=== PATIENT | female | born 1975 | race Caucasian/White ===

== ENCOUNTER 2023-07-08 23:46 | Emergency (ER) | payer MEDICAID, SELFPAY ==
[2023-07-08 23:48] VITALS: BP 167/115; PULSE 114; RESP 18; TEMP 36.7; O2SAT 100; BMI 28.3
[2023-07-09] MEDS: Morphine 4 MG/ML Syringe IV (00:31)
[2023-07-09] MEDS: Ondansetron 4 MG/2 ML Vial IV (00:31)
[2023-07-09 00:44] LABS: Bacteria 0 SEEN /hpf (None Seen); Mucous, Urine 0 SEEN /hpf (<or=2+); Red Blood Cells-Urine 0 SEEN /hpf (0-5); Squamous Epithelial Cells - UA 0 SEEN /hpf (5-10); White Blood Cells 0 SEEN /hpf (0-5)
[2023-07-09 00:52] LABS: Color, Urine Yellow (Yellow); Glucose, Dipstick 1000 mg/dl (Normal); Ketone-Dipstick 5 mg/dl (Negative); Leukocyte Esterase-Dipstick 25 /ul (Negative); Nitrite-Dipstick Negative (Negative); Occult Blood-Urine 10 /ul (Negative); Protein-Dipstick 30 mg/dl (Negative); Specific Gravity, Urine 1.015 (1.002-1.030); Urine Bilirubin Dipstick Negative (Negative); Urine Clarity Clear (Clear); Urine Urobilinogen Normal (Normal)
[2023-07-09 01:20] LABS: Anion Gap 8 (5-15); BUN 9 mg/dL (7-18); BUN/Creat Ratio 13.6 RATIO (10-20); Calcium,Total 8.8 mg/dL (8.5-10.1); Chloride 100 mmol/L (98-107); Creatinine, Serum 0.66 mg/dL (0.55-1.02); EST Glomerular Filtration Rate 101 mL/min (>60); Est Glom Filt Rate - Afr Amer 123 mL/min (>60); Estimated Creatinine Clearance 90.99 ml/min; Glucose 265 mg/dL (74-106); Potassium 3.7 mmol/L (3.5-5.1); Sodium Level 134 mmol/L (136-145)
--- NOTE | 2023-07-09 01:20 | EX.ED.DYSGE1 ---
HPI History of Present Illness Chief Complaint: Abd Pain Detail of Chief Complaint: Pain that started 4 days ago right flank and right lower quadrant Informant: patient Onset/Context/Timing Onset: Days Context: Sudden Onset Timing: Continuous and Waxes and wanes Quality: Initially pain now crampy Location: Initially right flank now right abdomen Current Severity: Mild Maximum Severity: Moderate Worsened by: There is musculoskeletal component Relieved by: Nothing Associated Symptoms Associated Symptoms: Nausea Narrative Narrative: Patient is a 47-year-old woman with history of renal and ureterolithiasis who presents with right flank pain that radiates anteriorly now the right side. She denies dysuria, frequency, urgency or hematuria. She is status post hysterectomy. She denies fever, chills night sweats. She denies trauma of any type. She denies intolerance to greasy or fried foods. She denies pain in the right upper quadrant or epigastrium. She has not noted a rash. Patient states this may be slightly similar to when she had a obstructing ureteral stone. She does have a history of type 2 diabetes requiring insulin. She also has history of depression and anxiety. Prior similar symptoms: Yes (History of ureterolithiasis) Recent Illness/Hospitalization: No [facility] Medical History (Reviewed 07/09/23 @ 01:[address] Charles Gomez MD) Anxiety Asthma COPD (chronic obstructive pulmonary disease) Depression HTN (hypertension) Hypothyroid Idiopathic anaphylaxis Kidney stones Type 2 diabetes mellitus Home Medications albuterol sulfate 90 mcg/actuation aerosol inhaler (ProAir HFA) 2 inh inhalation Q4H PRN shortness of breath or wheezing 07/08/23 [History Last Taken Unknown] fluticasone 250 mcg-salmeterol 50 mcg/dose blistr powdr for inhalation (Advair Diskus) 1 inh inhalation BID 07/08/23 [History Last Taken Unknown] insulin aspart U-100 100 unit/mL (3 mL) subcutaneous pen (Novolog FlexPen U-100 Insulin aspart) See Protocol subcut DAILY 07/08/23 [History Last Taken Unknown] lorazepam 0.5 mg tablet (Ativan) 0.5 mg PO Q8H PRN anxiety 07/08/23 [History Last Taken Unknown] pioglitazone 45 mg tablet (Actos) 45 mg PO DAILY 07/08/23 [History Last Taken Unknown] trazodone 150 mg tablet 150 mg PO QHS 07/08/23 [History Last Taken Unknown] hydrocodone-acetaminophen 5-325mg 5mg-325mg 1 tab PO Q6H PRN PRN Pain 2 days #6 TABLETS 07/09/23 [Rx Last Taken Unknown] Allergy/AdvReac Type Severity Reaction Status Date / Time aspirin Allergy Hives Verified 07/08/23 23:48 diphenhydramine Allergy Hives Verified 07/08/23 23:48 [From Benadryl] latex Allergy Hives Verified 07/08/23 23:48 Sulfa (Sulfonamide Allergy Hives Verified 07/08/23 23:48 Antibiotics) Surgical History (Reviewed 07/09/23 @ 01:[address] Charles Gomez MD) H/O lithotripsy H/O total hysterectomy History of urethral stent Social History (Updated 07/09/23 @ 01:[address] Charles Gomez MD) household members: spouse Smoking Status: Current every day smoker tobacco type: cigarettes substance use type: does not use ROS ROS ED Constitutional Constitutional ED: Denies chills, fever(s), subjective, sweats or weight loss Eyes Eyes: Denies blurry vision, change in vision or diplopia ENT ENT ED: Denies ear pain, rhinorrhea or sore throat Cardiovascular Cardiovascular: Denies chest pain, orthopnea, palpitations, paroxysmal nocturnal dyspnea or racing heartbeat Respiratory/Chest Respiratory/Chest: Denies cough, dyspnea, dyspnea on exertion, orthopnea or paroxysmal nocturnal dyspnea Gastrointestinal Gastrointestinal: Reports nausea; Denies abdominal pain, diarrhea, melena or vomiting Genitourinary Genitourinary ED: Denies dysuria, hematuria or urinary frequency Musculoskeletal Musculoskeletal: Reports back pain; Denies arthralgias, myalgias or neck pain Integumentary Denies rash Neurologic Neurologic: Denies paresthesias or weakness Psychiatric Psychiatric: Reports anxiety and depression Hematologic/Lymphatic Hematologic/Lymphatic: Reports systems reviewed and no addt'l complaints, except as documented EXAM Physical Exam Const Vital Signs: 07/08/23 23:48 Temperature 98.1 F Temperature Source Temporal Pulse Rate 114 H Respiratory Rate 18 Blood Pressure 167/115 H Blood Pressure Mean 132 Pulse Ox 100 Positive well nourished, well developed and obese General Appearance ED: well developed and NAD; Negative for cyanotic, diaphoretic or pallor Nutritional Appearance: obese HEENT Reports moist mucous membranes HEENT Narrative: Head is atraumatic and normocephalic. Ears are normal. Nares are patent. Posterior pharynx is unremarkable. Eyes PERRL and EOMs intact bilaterally General Eye ED: Negative for pale conjunctiva or scleral icterus Neck no lymphadenopathy, supple and no JVD Chest Wall inspection of chest normal and palpation of chest normal Resp normal respiratory effort and clear to auscultation bilaterally Cardio regular rate, regular rhythm, S1 normal heart sound, S2 normal heart sound and no murmurs GI normal to inspection, nondistended, normoactive bowel sounds, non-tender, non-distended and no masses; Negative for hepatosplenomegaly Back/Spine no CVA tenderness Cervical Spine: Negative for cervical spine tenderness Thoracic Spine / Upper Back: paraspinal muscle tenderness; Negative for thoracic spinal tenderness Lumbar Spine / Lower Back: Negative for lumbar spinal tenderness Extremity normal to inspection Extremity Narrative: Distal pulses are palpable. General Extremety ED: Negative for edema or tenderness General Extremity: Negative for edema Neuro oriented x3, CN's II-XII intact bilaterally and no sensory deficits noted Sensorium / Orientation: alert Motor Exam: strength 5/5 throughout Psych Mood & Affect: depressed Skin no rashes or lesions noted, no wounds and skin turgor normal General Skin Exam: Negative for jaundice or pallor MDM MDM MDM Narrative Medical decision making narrative: Diagnosis would include muscular pain associated with reproducible component and pain with twisting. Ureterolithiasis, pain of unknown etiology, doubt pyelonephritis. Doubt appendicitis since she does not have any abdominal pain. Patient was medicated with IV morphine. Patient informed nurse that she has increased pain. Since there is no evidence of urologic pathology based on history and physical and she is complaining of cramping pain she was treated with Bentyl. 1 would expect elevated white count if this represented appendicitis that started 4 days ago and would expect abdominal pain. With a negative urine there is no evidence of infection and doubt this is due to obstructing stone because patient does not appear uncomfortable. History & Record Review Discussion w/independent historian: Patient and Significant other Additional record(s) reviewed:: No prior records Lab Data Attestation: I reviewed the patient's lab results. Lab results narrative: BC is normal. Electrolyte panel is remarkable glucose was 265 with normal CO2 and anion gap. Analysis macro is remarkable for protein, glucose and ketones and occult blood. There is no nitrites. Microscopic is negative. 0 RBCs, 0 WBCs, 0 epithelial cells and 0 bacteria. Labs: Laboratory Results - last 24 hr 07/09/23 07/09/23 00:35 00:38 WBC 9.6 RBC 5.04 Hgb 15.3 H Hct 44.8 MCV 88.9 MCH 30.4 MCHC 34.2 RDW Std Deviation 41.6 RDW Coeff of Manpreet 12.8 Plt Count 482 H MPV 8.8 Immature Gran % (Auto) 0.400 Neut % (Auto) 53.6 Lymph % (Auto) 35.9 [place] % (Auto) 6.6 Eos % (Auto) 2.6 Baso % (Auto) 0.9 Absolute Neuts (auto) 5.1 Absolute Lymphs (auto) 3.44 Nucleated RBC % 0 Sodium 134 L Potassium 3.7 Chloride 100 Carbon Dioxide 26.0 Anion Gap 8 BUN 9 Creatinine 0.66 Estim Creat Clear Calc 90.99 Est GFR (MDRD) Af Amer 123 Est GFR (MDRD) Non-Af 101 BUN/Creatinine Ratio 13.6 Glucose 265 H Calcium 8.8 Urine Color Yellow Urine Clarity Clear Urine pH 6.0 Ur Specific [place] 1.015 Urine Protein 30 H Urine Glucose (UA) 1000 H Urine Ketones 5 H Urine Occult Blood 10 H Urine Nitrite Negative Urine Bilirubin Negative Urine Urobilinogen Normal Ur Leukocyte Esterase 25 H Urine RBC 0 SEEN Urine WBC 0 SEEN Ur Squamous Epith Cells 0 SEEN Urine Bacteria 0 SEEN Urine Mucus 0 SEEN Treatment and Re-Evaluation :: It was medicated Bentyl since her laboratory studies were negative. She was reexamined. She appears in no significant discomfort. Her abdominal exam is benign. She was told the cause of her pain is unknown. Furthermore she was told that 50% of patients who come into the emergency room with abdominal pain the answer is unknown. Discharge Plan Triage Chief Complaint: Abd Pain ED Provider: Charles Gomez Dx/Rx/DC Orders Clinical Impression: Right-sided abdominal pain of unknown cause, History of anxiety, Type 2 diabetes mellitus with hyperglycemia, with long-term current use of insulin, History of depression Instructions: ED Abdominal Pain Unkn Cause Fem Prescriptions: New hydrocodone-acetaminophen [hydrocodone-acetaminophen] 5-325 mg tablet 1 tab PO Q6H PRN PRN (Reason: Pain) 2 Days Qty: 6 0RF No Action fluticasone propion-salmeterol [Advair Diskus] 250-50 mcg/dose blister with device 1 inh inhalation BID albuterol sulfate [ProAir HFA] 90 mcg/actuation HFA aerosol inhaler 2 inh inhalation Q4H PRN (Reason: shortness of breath or wheezing) lorazepam [Ativan] 0.5 mg tablet 0.5 mg PO Q8H PRN (Reason: anxiety) pioglitazone [Actos] 45 mg tablet 45 mg PO DAILY insulin aspart U-100 [Novolog FlexPen U-100 Insulin] 100 unit/mL (3 mL) insulin pen See Protocol subcut DAILY Protocol: 6. Sliding Scale Insulin Custom Condition: mg/dl range Dose/Route: Number of Units Protocol Text: Custom Sliding Scale Patient Comments: HAS PAPER AT HOME FOR SCALE trazodone 150 mg tablet 150 mg PO QHS Primary Care Provider: Nakia Garcia Referrals: NOT,DEFINED [Non-Staff] - Doctor,Your [Non-Staff] - 2 Days Disposition Disposition: Home, Self Care
[2023-07-09] MEDS: Dicyclomine 10 MG Capsule 20 MG PO (01:24)
[2023-07-09 01:40] LABS: Absolute Lymphocyte Count 3.44 X10^3/uL (0.83-4.51); Absolute Neutrophil Count 5.1 X10^3/uL (2.0-7.7); Basophil# 0.09 X10^3/uL; Basophil% 0.9 % (0-1); Eosinophil# 0.25 X10^3/uL; Eosinophils% 2.6 % (0-5); Hematocrit 44.8 % (37-47); Hemoglobin 15.3 g/dL (12.0-15.0); Lymphocyte # 3.44 X10^3/ul (0.83-4.51); Lymphocyte % 35.9 % (19-41); Mean Corp Hgb Conc 34.2 g/dL (32-36); Mean Corpuscular Hgb 30.4 pg (27.0-32.0); Mean Corpuscular Volume 88.9 fL (81-99); Mean Platelet Vol. 8.8 fl (6.2-12.0); Monocyte# 0.63 X10^3/uL; Monocyte% 6.6 % (0-10); NRBC Flagged by Analyzer 0 % (0-5); Neutrophil # 5.12 X10^3/uL (2.7-7.7); Neutrophil % 53.6 % (47-70); Platelet Count 482 K/mm3 (150-450); RBC Distribution Width CV 12.8 % (11.6-14.6); RBC Distribution Width SD 41.6 fl (35.1-43.9); Red Blood Count 5.04 M/mm3 (4.2-5.4); White Blood Count 9.6 K/mm3 (4.4-11.0)
[2023-07-09 02:05] VITALS: PULSE 79; RESP 16; O2SAT 98
== END 2023-07-09 02:07 | disposition home or self-care (01) ==
PROVIDERS: Emergency Provider Emergency Medicine; Visit Provider Emergency Medicine
DX: R10.31 Right lower quadrant pain (principal); J44.9 Chronic obstructive pulmonary disease, unspecified; E11.65 Type 2 diabetes mellitus with hyperglycemia; Z79.4 Long term (current) use of insulin; F17.210 Nicotine dependence, cigarettes, uncomplicated; E66.9 Obesity, unspecified; F41.9 Anxiety disorder, unspecified; F32.A Depression, unspecified; Z79.899 Other long term (current) drug therapy
CPT/HCPCS: 80048; 81001; 85025; 96374; 96375; 99284; J7030; A4216; J2405

== ENCOUNTER 2023-07-12 12:47 | Emergency (ER) | payer MEDICAID, SELFPAY ==
[2023-07-12 12:47] VITALS: BP 163/110; PULSE 123; RESP 18; TEMP 36.2; O2SAT 99; BMI 27.6
[2023-07-12 13:43] LABS: Bacteria 0 SEEN /hpf (None Seen); Mucous, Urine 0 SEEN /hpf (<or=2+); Red Blood Cells-Urine 0 SEEN /hpf (0-5)
[2023-07-12 13:56] LABS: Color, Urine Yellow (Yellow); Glucose, Dipstick 1000 mg/dl (Normal); Ketone-Dipstick 5 mg/dl (Negative); Leukocyte Esterase-Dipstick Negative /ul (Negative); Nitrite-Dipstick Negative (Negative); Occult Blood-Urine 10 /ul (Negative); Protein-Dipstick 30 mg/dl (Negative); Specific Gravity, Urine 1.015 (1.002-1.030); Urine Bilirubin Dipstick Negative (Negative); Urine Clarity Clear (Clear); Urine Urobilinogen Normal (Normal)
[2023-07-12 14:10] LABS: Squamous Epithelial Cells - UA 0-5 SEEN /hpf (5-10); White Blood Cells 0-5 SEEN /hpf (0-5)
[2023-07-12] MEDS: 0.9% Normal Saline (1000mL) 1,000 ML 1000 ML IV (14:14)
[2023-07-12] MEDS: Ketorolac 30 MG/ML Syringe IV (14:15)
[2023-07-12] MEDS: Ondansetron 4 MG/2 ML Vial IV (14:15)
--- NOTE | 2023-07-12 14:15 | EDS_ITS ---
HPI History of Present Illness Chief Complaint: Abd Pain Informant: patient Narrative Narrative: 47-year-old diabetic female presenting to the emergency room with abdominal pain nausea vomiting swelling. Patient states she was seen in the emergency room on Monday had negative labs and was discharged home to follow-up with her doctor. She states her doctor cannot see her till next Monday due to the office being closed. Patient reports that this has been going on for weeks and describes a right-sided pain with intermittent swelling. She notes nausea vomiting decreased p.o. intake and weight loss. She states that when she stands there is a more prominent bulge on the right side of her abdomen along the lower rib/chondral region. Patient has had prior kidney stones before. She has had a hysterectomy. [facility] Medical History Anxiety Asthma COPD (chronic obstructive pulmonary disease) Depression HTN (hypertension) Hypothyroid Idiopathic anaphylaxis Kidney stones Type 2 diabetes mellitus Home Medications albuterol sulfate 90 mcg/actuation aerosol inhaler (ProAir HFA) 2 inh inhalation Q4H PRN shortness of breath or wheezing 07/08/23 [History Last Taken Unknown] fluticasone 250 mcg-salmeterol 50 mcg/dose blistr powdr for inhalation (Advair Diskus) 1 inh inhalation BID 07/08/23 [History Last Taken Unknown] insulin aspart U-100 100 unit/mL (3 mL) subcutaneous pen (Novolog FlexPen U-100 Insulin aspart) See Protocol subcut DAILY 07/08/23 [History Last Taken Unknown] lorazepam 0.5 mg tablet (Ativan) 0.5 mg PO Q8H PRN anxiety 07/08/23 [History Last Taken Unknown] pioglitazone 45 mg tablet (Actos) 45 mg PO DAILY 07/08/23 [History Last Taken Unknown] trazodone 150 mg tablet 150 mg PO QHS 07/08/23 [History Last Taken Unknown] hydrocodone-acetaminophen 5-325mg 5mg-325mg 1 tab PO Q6H PRN PRN Pain 2 days #6 TABLETS 07/09/23 [Rx Last Taken Unknown] hydrocodone-acetaminophen 5-325mg 5mg-325mg 1 tab PO Q6H PRN PRN Pain 5 days #20 TABLETS 07/12/23 [Rx Last Taken Unknown] ondansetron 4 mg disintegrating tablet 4 mg PO Q6H PRN PRN Nausea #10 tabs 07/12/23 [Rx Last Taken Unknown] Allergy/AdvReac Type Severity Reaction Status Date / Time aspirin Allergy Hives Verified 07/12/23 12:49 diphenhydramine Allergy Hives Verified 07/12/23 12:49 [From Benadryl] iodine Allergy Rash Verified 07/12/23 14:17 latex Allergy Hives Verified 07/12/23 12:49 Sulfa (Sulfonamide Allergy Hives Verified 07/12/23 12:49 Antibiotics) Surgical History H/O lithotripsy H/O total hysterectomy History of urethral stent Social History household members: spouse Smoking Status: Current every day smoker tobacco type: cigarettes substance use type: does not use ROS ROS ED Constitutional Constitutional ED: Reports weight loss; Denies chills or fever(s) Eyes Eyes: Denies change in vision or diplopia ENT ENT ED: Denies ear pain, rhinorrhea or sore throat Cardiovascular Cardiovascular: Denies chest pain, orthopnea, palpitations or racing heartbeat Respiratory/Chest Respiratory/Chest: Denies cough, dyspnea or orthopnea Gastrointestinal Gastrointestinal: Reports abdominal pain, nausea and vomiting; Denies diarrhea Genitourinary Genitourinary ED: Denies dysuria, hematuria or urinary frequency Musculoskeletal Musculoskeletal: Denies arthralgias or myalgias Integumentary Denies abscess or rash Neurologic Neurologic: Denies headache(s) or weakness Psychiatric Psychiatric: Denies anxiety, depression, suicidal ideation or suicidal thoughts Endocrine Endocrinology: Denies polydipsia, polyphagia or polyuria Allergic/Immunologic Allergic/Immunologic ED: Denies mouth swelling, tongue swelling or urticaria EXAM Physical Exam Const Vital Signs: 07/12/23 12:47 07/12/23 15:46 Temperature 97.2 F L Temperature Source Temporal Pulse Rate 123 H 79 Respiratory Rate 18 16 Blood Pressure 163/110 H 139/72 H Blood Pressure Mean 127 94 Pulse Ox 99 97 Oxygen Delivery Method Room Air Room Air Positive well nourished and well developed General Appearance ED: well developed HEENT Reports normocephalic, head/scalp atraumatic and moist mucous membranes Eyes PERRL and EOMs intact bilaterally Neck no lymphadenopathy, supple and no JVD Resp normal respiratory effort and clear to auscultation bilaterally Cardio regular rate, regular rhythm and no murmurs GI Auscultation: normoactive bowel sounds Palpation: soft and tender RUQ; Negative for guarding or rebound tenderness present Narrative: Tenderness in the right upper quadrant lower anterior lateral ribs and right middle quadrant. Back/Spine no CVA tenderness and normal ROM Extremity normal to inspection General Extremety ED: Negative for edema General Extremity: Negative for edema Neuro oriented x3 and CN's II-XII intact bilaterally Sensorium / Orientation: alert Motor Exam: strength 5/5 throughout Psych mental status grossly normal Mood & Affect: Negative for depressed or tearful Skin no rashes or lesions noted and no wounds MDM MDM MDM Narrative Medical decision making narrative: White count remains normal 9.1 hemoglobin 16.6 with a platelet count of 494. Liver enzymes and lipase are normal. Glucose of 330. Urinalysis showed no obvious infection or hematuria. CT of the abdomen pelvis demonstrates some possible sludge with gallstones. I do not see any inflammation around the colon. Patient will receive some pain and nausea medication and we are going to perform an ultrasound. As the patient has had symptoms for a couple weeks her white count remains normal no elevation of liver enzymes and her symptoms are bit atypical and not convinced that she would need an emergent cholecystectomy. If the gallbladder ultrasound does not show anything emergent I will write for pain and nausea medication and we will have her follow-up with her primary care doctor on Monday. She may need further studies such as a HIDA scan colonoscopy or general surgery evaluation. Patient is comfortable with this plan I will speak with the oncoming physician Lab Data Attestation: I reviewed the patient's lab results. Labs: Laboratory Results - last 24 hr 07/12/23 07/12/23 13:02 14:20 WBC 9.1 RBC 5.47 H Hgb 16.6 H Hct 48.2 H MCV 88.1 MCH 30.3 MCHC 34.4 RDW Std Deviation 41.1 RDW Coeff of Manpreet 12.7 Plt Count 494 H MPV 8.4 Immature Gran % (Auto) 0.300 Neut % (Auto) 54.8 Lymph % (Auto) 36.4 [place] % (Auto) 6.0 Eos % (Auto) 1.7 Baso % (Auto) 0.8 Absolute Neuts (auto) 5.0 Absolute Lymphs (auto) 3.30 Nucleated RBC % 0 Sodium 128 L Potassium 4.2 Chloride 98 Carbon Dioxide 23.0 Anion Gap 7 BUN 8 Creatinine 0.73 Estim Creat Clear Calc 82.27 Est GFR (MDRD) Af Amer 109 Est GFR (MDRD) Non-Af 90 BUN/Creatinine Ratio 10.9 Glucose 330 H Calcium 9.2 Total Bilirubin 0.40 Direct Bilirubin 0.11 AST 8 L ALT 13 Alkaline Phosphatase 93 Total Protein 7.5 Albumin 3.8 Globulin 3.7 Lipase 32 Urine Color Yellow Urine Clarity Clear Urine pH 6.0 Ur Specific [place] 1.015 Urine Protein 30 H Urine Glucose (UA) 1000 H Urine Ketones 5 H Urine Occult Blood 10 H Urine Nitrite Negative Urine Bilirubin Negative Urine Urobilinogen Normal Ur Leukocyte Esterase Negative Urine RBC 0 SEEN Urine WBC 0-5 SEEN Ur Squamous Epith Cells 0-5 SEEN Urine Bacteria 0 SEEN Urine Mucus 0 SEEN Radiography Diagnostic Testing: Clinical Impression(s) from Imaging Studies Abdomen/Pelvis CT 07/12/23 14:39 IMPRESSION: Nonobstructive right intrarenal calculus. Questionable small gallstones or sludge along the dependent portion of the gallbladder lumen. Electronically Signed: Fran Aguilar MD at 15:05 EST , Discharge Plan Triage Chief Complaint: Abd Pain ED Provider: Mohan Bhardwaj Dx/Rx/DC Orders Clinical Impression: Right-sided abdominal pain of unknown cause, Type 2 diabetes mellitus with hyperglycemia, with long-term current use of insulin Instructions: Abdominal Pain Prescriptions: New hydrocodone-acetaminophen [hydrocodone-acetaminophen] 5-325 mg tablet 1 tab PO Q6H PRN PRN (Reason: Pain) 5 Days Qty: 20 0RF ondansetron [ondansetron] 4 mg tablet,disintegrating 4 mg PO Q6H PRN PRN (Reason: Nausea) Qty: 10 0RF No Action fluticasone propion-salmeterol [Advair Diskus] 250-50 mcg/dose blister with device 1 inh inhalation BID albuterol sulfate [ProAir HFA] 90 mcg/actuation HFA aerosol inhaler 2 inh inhalation Q4H PRN (Reason: shortness of breath or wheezing) lorazepam [Ativan] 0.5 mg tablet 0.5 mg PO Q8H PRN (Reason: anxiety) pioglitazone [Actos] 45 mg tablet 45 mg PO DAILY insulin aspart U-100 [Novolog FlexPen U-100 Insulin] 100 unit/mL (3 mL) insulin pen See Protocol subcut DAILY Protocol: 6. Sliding Scale Insulin Custom Condition: mg/dl range Dose/Route: Number of Units Protocol Text: Custom Sliding Scale Patient Comments: HAS PAPER AT HOME FOR SCALE trazodone 150 mg tablet 150 mg PO QHS hydrocodone-acetaminophen [hydrocodone-acetaminophen] 5-325 mg tablet 1 tab PO Q6H PRN PRN (Reason: Pain) 2 Days Qty: 6 0RF Primary Care Provider: Nakia Garcia Referrals: Nakia Garcia MD [Primary Care Provider] - [facility] appointment Disposition Disposition: Home, Self Care
[2023-07-12 14:24] LABS: Basophil# 0.07 X10^3/uL; Basophil% 0.8 % (0-1); Eosinophil# 0.15 X10^3/uL; Eosinophils% 1.7 % (0-5); Hematocrit 48.2 % (37-47); Hemoglobin 16.6 g/dL (12.0-15.0); Lymphocyte % 36.4 % (19-41); Mean Corp Hgb Conc 34.4 g/dL (32-36); Mean Corpuscular Hgb 30.3 pg (27.0-32.0); Mean Corpuscular Volume 88.1 fL (81-99); Mean Platelet Vol. 8.4 fl (6.2-12.0); Monocyte# 0.54 X10^3/uL; NRBC Flagged by Analyzer 0 % (0-5); Neutrophil # 4.97 X10^3/uL (2.7-7.7); Neutrophil % 54.8 % (47-70); Platelet Count 494 K/mm3 (150-450); RBC Distribution Width CV 12.7 % (11.6-14.6); RBC Distribution Width SD 41.1 fl (35.1-43.9); Red Blood Count 5.47 M/mm3 (4.2-5.4); White Blood Count 9.1 K/mm3 (4.4-11.0)
--- NOTE | 2023-07-12 14:39 | CT_ITS ---
STUDY: CT ABDOMEN AND PELVIS WITHOUT CONTRAST REASON FOR EXAM: Female, 47 years old. Right flank pain. Nausea and vomiting. RADIATION DOSAGE (If Supplied By Facility): CTDIvol = ( 10.83 ) mGy, DLP = ( 551.31 ) mGycm TECHNIQUE: Transaxial images were obtained from the dome of the diaphragm to the symphysis pubis without oral contrast, and without intravenous contrast. Sagittal and coronal images were reconstructed. Individualized dose optimization techniques were used for this CT. COMPARISON: None. FINDINGS: The visualized lung bases are unremarkable. The visualized portions of the heart are within normal limits. Hepatomegaly. Crests most large or small gallstones along the dependent portion of the gallbladder. Normal spleen. Normal pancreas. Normal bilateral adrenal glands. There is a 2.5 mm nonobstructive calculus in the upper pole calyx of the right kidney. Normal left kidney. Normal visualized stomach. Normal small intestine. There are scattered colonic diverticula consistent with diverticulosis. The appendix is visualized and appears normal. Normal abdominal aorta. Normal inferior vena cava. Normal retroperitoneum. Normal urinary bladder. There is absence of the uterus consistent with a prior hysterectomy. Normal abdominal wall. There are mild degenerative changes of the visualized lumbar spine. CT/Abdomen/Pelvis without Cont IMPRESSION: Nonobstructive right intrarenal calculus. Questionable small gallstones or sludge along the dependent portion of the gallbladder lumen. Electronically Signed: Fran Aguilar MD at 15:05 EST ,
[2023-07-12 14:42] LABS: AST(SGOT) 8 U/L (15-37); Alanine Aminotransfer ALT/SGPT 13 U/L (13-56); Albumin, Serum 3.8 g/dL (3.2-5.0); Alkaline Phosphatase 93 U/L (45-117); Anion Gap 7 (5-15); BUN 8 mg/dL (7-18); BUN/Creat Ratio 10.9 RATIO (10-20); Bilirubin, Direct 0.11 mg/dL (0.00-0.30); Calcium,Total 9.2 mg/dL (8.5-10.1); Chloride 98 mmol/L (98-107); Creatinine, Serum 0.73 mg/dL (0.55-1.02); EST Glomerular Filtration Rate 90 mL/min (>60); Est Glom Filt Rate - Afr Amer 109 mL/min (>60); Estimated Creatinine Clearance 82.27 ml/min; Globulin 3.7 g/dL (2.2-4.2); Glucose 330 mg/dL (74-106); Lipase 32 U/L (13-75); Potassium 4.2 mmol/L (3.5-5.1); Protein, Total 7.5 g/dL (6.4-8.2); Sodium Level 128 mmol/L (136-145)
[2023-07-12 15:46] VITALS: BP 139/72; PULSE 79; RESP 16; O2SAT 97
--- NOTE | 2023-07-12 16:08 | US_ITS ---
INDICATION: pain EXAMINATION: Ultrasound US Abdomen Limited (quadrant) TECHNIQUE: Jefferson scale and color doppler imaging was performed of the right upper quadrant. COMPARISON: FINDINGS: LIVER: There is coarse echotexture measuring 18.4 cm. No focal hepatic lesion. There is no free fluid. GALLBLADDER AND BILIARY TREE: No shadowing gallstone, pericholecystic fluid or gallbladder wall thickening is demonstrated. The proximal common bile duct measures 5 mm, which is within normal limits for the patient''s age. Songraphic Reddy''s sign: Negative. PANCREAS: No focal abnormality is demonstrated in the pancreas. No pancreatic ductal dilatation. RIGHT KIDNEY: 12.7 x 5.1 x 5.1 cm. The cortex is 14 mm. No hydronephrosis. No shadowing calculi. US/Gallbladder IMPRESSION: Coarse hepatic echotexture with borderline size of the liver. Electronically Signed: Saeid Kirby DO at 17:00 EST ,
[2023-07-12 17:32] VITALS: BP 124/79; PULSE 62; RESP 15; O2SAT 98
== END 2023-07-12 17:34 | disposition home or self-care (01) ==
PROVIDERS: Emergency Provider Emergency Medicine; Visit Provider Emergency Medicine
DX: R10.9 Unspecified abdominal pain (principal); E11.65 Type 2 diabetes mellitus with hyperglycemia; Z79.4 Long term (current) use of insulin; F17.210 Nicotine dependence, cigarettes, uncomplicated
CPT/HCPCS: 74176; 76705; 80048; 80076; 81001; 83690; 85025; 96361; 96374; 96375; 99283; J7030; A4216; J2405

== ENCOUNTER 2023-08-28 16:10 | Emergency (ER) | payer MEDICAID, SELFPAY ==
[2023-08-28 16:16] VITALS: BP 158/99; PULSE 98; RESP 16; TEMP 36.1; O2SAT 96
[2023-08-28 16:22] VITALS: BP 158/99; PULSE 98; RESP 18; TEMP 36.1; O2SAT 96
--- NOTE | 2023-08-28 16:50 | ED.VIS.GI ---
HPI HPI - GI History of Present Illness Chief Complaint: Abd Pain Detail of Chief Complaint: Chronic abdominal pain for 3+ months. Nausea, vomiting diarrhea today. Informant: patient and spouse/S.O. Abdominal Pain/Flank Pain Onset: Month(s) Context: Gradual Onset Timing: Continuous Quality: Cramping Location: Diffuse Current Severity: Mild Maximum Severity: Moderate Worsened by: Nothing Relieved by: Nothing Nausea/Vomiting/Emesis GI Symptom: Positive for Nausea and Vomiting Onset: Today Diarrhea/Melena/Hematochezia GI Symptom: Positive for Diarrhea; Negative for Melena or Hematochezia Onset: Today Stool Quality: Positive for Loose Severity: Mild Associated Symptoms Associated Symptoms: Negative for Dysuria, Frequency, Hematuria or Urgency Narrative Narrative: 47-year-old female extensive past medical history of COPD, diabetes, kidney stones. She has had diffuse abdominal pain for 3+ months. Today has nausea, vomiting and diarrhea. Epigastric pain. Says she just feels weak. She has had decreased oral intake for the last 3 days. This has been a chronic abdominal pain she has had for months. They are working it up. No specific cause. She had ultrasound of her gallbladder which is unremarkable. A pending HIDA scan. She had an upper GI which showed no acute abnormality by endoscopy. She had a CT of her abdomen which was unremarkable. She seen a GI physician who did her upper endoscopy. They have not done a colonoscopy as of yet. Patient states she has had a 90 pound weight loss in the last year of which she is lost 40 to 50 pounds in the last 4+ months. She has had a prior hysterectomy no other abdominal or pelvic surgeries. Prior similar symptoms: Yes Recent Illness/Hospitalization: No PFSH PFSH Medical History Anxiety Asthma COPD (chronic obstructive pulmonary disease) Depression HTN (hypertension) Hypothyroid Idiopathic anaphylaxis Kidney stones Type 2 diabetes mellitus Home Medications albuterol sulfate 90 mcg/actuation aerosol inhaler (ProAir HFA) 2 inh inhalation Q4H PRN shortness of breath or wheezing 07/08/23 [History Last Taken Unknown] fluticasone 250 mcg-salmeterol 50 mcg/dose blistr powdr for inhalation (Advair Diskus) 1 inh inhalation BID 07/08/23 [History Last Taken Unknown] insulin aspart U-100 100 unit/mL (3 mL) subcutaneous pen (Novolog FlexPen U-100 Insulin aspart) See Protocol subcut DAILY 07/08/23 [History Last Taken Unknown] lorazepam 0.5 mg tablet (Ativan) 0.5 mg PO Q8H PRN anxiety 07/08/23 [History Last Taken Unknown] pioglitazone 45 mg tablet (Actos) 45 mg PO DAILY 07/08/23 [History Last Taken Unknown] trazodone 150 mg tablet 150 mg PO QHS 07/08/23 [History Last Taken Unknown] hydrocodone-acetaminophen 5-325mg 5mg-325mg 1 tab PO Q6H PRN PRN Pain 2 days #6 TABLETS 07/09/23 [Rx Last Taken Unknown] hydrocodone-acetaminophen 5-325mg 5mg-325mg 1 tab PO Q6H PRN PRN Pain 5 days #20 TABLETS 07/12/23 [Rx Last Taken Unknown] ondansetron 4 mg disintegrating tablet 4 mg PO Q6H PRN PRN Nausea #10 tabs 07/12/23 [Rx Last Taken Unknown] Allergy/AdvReac Type Severity Reaction Status Date / Time aspirin Allergy Hives Verified 08/28/23 16:12 diphenhydramine Allergy Hives Verified 08/28/23 16:12 [From Benadryl] iodine Allergy Rash Verified 08/28/23 16:12 latex Allergy Hives Verified 08/28/23 16:12 Sulfa (Sulfonamide Allergy Hives Verified 08/28/23 16:12 Antibiotics) Surgical History H/O lithotripsy H/O total hysterectomy History of urethral stent Social History household members: spouse Smoking Status: Current every day smoker tobacco type: cigarettes substance use type: does not use ROS ROS ED Review of Systems ROS Unobtainable: Denies due to encephalopathy Constitutional Constitutional ED: Denies chills or fever(s) ENT ENT ED: Denies ear pain Cardiovascular Cardiovascular: Denies chest pain Respiratory/Chest Respiratory/Chest: Denies cough or dyspnea Gastrointestinal Gastrointestinal: Reports abdominal pain, diarrhea, nausea and vomiting; Denies constipation or melena Genitourinary Genitourinary ED: Denies dysuria or hematuria Musculoskeletal Musculoskeletal: Denies arthralgias or back pain Integumentary Denies abscess Neurologic Neurologic: Denies headache(s) Psychiatric Psychiatric: Reports anxiety and depression Endocrine Endocrinology: Denies polydipsia Hematologic/Lymphatic Hematologic/Lymphatic: Denies easy bleeding or easy bruising Allergic/Immunologic Allergic/Immunologic ED: Denies mouth swelling or tongue swelling EXAM Physical Exam Narrative Exam Narrative: 47-year-old female no acute distress. Vital signs stable afebrile. at bedside. H EENT exam unremarkable. Neck nontender. Lungs clear to auscultation bilaterally. Heart regular rhythm rate in 90s no murmur. Abdomen soft nondistended normal bowel sounds no peritoneal signs. She complains of epigastric pain is not significantly reproducibly tender. Right upper right lower quadrant unremarkable. No hernia or mass. No pulsatile mass. No distention or obstruction. Moving all 4 extremities. Nontender no edema. Neurologically she is awake and alert. Back nontender. Const Vital Signs: 08/28/23 16:16 08/28/23 16:22 Temperature 97.0 F L 97.0 F L Temperature Source Temporal Temporal Pulse Rate 98 98 Respiratory Rate 16 18 Blood Pressure 158/99 H 158/99 H Blood Pressure Mean 118 118 Pulse Ox 96 96 Oxygen Delivery Method Room Air Room Air Positive well nourished and well developed; Negative for obese, cachectic or contractures General Appearance ED: well developed; Negative for cachectic, contractures or pallor Nutritional Appearance: Negative for cachectic or obese HEENT Reports moist mucous membranes normocephalic and atraumatic; Negative for trauma or tenderness Eyes PERRL and EOMs intact bilaterally General Eye ED: Negative for pale conjunctiva or scleral icterus Neck no lymphadenopathy, supple and no JVD General: Negative for tenderness Carotids: Negative for other Lymph Lymphatic: Negative for other Resp normal respiratory effort Effort and Inspection: Negative for respiratory distress Auscultation: Negative for rales, rhonchi or wheezes Cardio regular rate, regular rhythm, S1 normal heart sound, S2 normal heart sound and no murmurs Rate: Negative for bradycardia or tachycardic Rhythm: Negative for abnormal rhythm GI non-tender, non-distended and no masses Inspection: Negative for abdominal distention Auscultation: normoactive bowel sounds Palpation: soft; Negative for tender, guarding, rigid or rebound tenderness present Back/Spine no CVA tenderness General Back: Negative for CVA tenderness Cervical Spine: Negative for cervical spine tenderness Thoracic Spine / Upper Back: Negative for thoracic spinal tenderness Lumbar Spine / Lower Back: Negative for lumbar spinal tenderness Coccyx: Negative for other Extremity full ROM General Extremety ED: Negative for edema or tenderness General Extremity: Negative for edema Neuro CN's II-XII intact bilaterally and moves all extremities Sensorium / Orientation: alert, oriented to person, oriented to place and oriented to time; Negative for orientation impaired, confused or lethargic Motor Exam: strength 5/5 throughout Psych mental status grossly normal and thought process normal Appearance: Negative for other Attitude: No agitated Mood & Affect: Negative for depressed Skin no wounds General Skin Exam: Negative for jaundice or pallor Lesions: no lesions Rashes: no rashes Trauma: Negative for abrasion or other Nails: Negative for discolored MDM MDM MDM Narrative Medical decision making narrative: [id number] female with 3+ month history of daily abdominal pain intermittent nausea, vomiting and diarrhea which she has had today prior negative upper endoscopy, CT abdomen and pelvis and ultrasound. All of which been unremarkable. Labs are pending. Zofran for nausea. And Toradol for pain. Repeat exam patient is doing well at 5:55 PM patient doing well. Abdomen is completely benign. Nontender nondistended. We went over her labs. She is an extensive workup over the last several months. I do think a lot of this is related to her anxiety. She spoke to the mental health hotline twice yesterday. She is not suicidal. She said she will reach out for help if she feels worse from a mental and emotional standpoint but she said she is having a better day today. To be given Ativan prior to discharge. Follow-up with her primary care physician tomorrow. Patient is here with her . They are both comfortable with her being discharged home. History & Record Review Discussion w/independent historian: Patient Additional record(s) reviewed:: Prior inpatient record, Prior outpatient record, Prior ED visit and Prior labs Lab Data Attestation: I reviewed the patient's lab results. Lab results narrative: CBC shows a white count 8. H&H of 15 and 43. Platelets 428. Electrolytes show sodium 133 previously was actually lower at 128 and it has improved. Gap of 9. Normal BUN of 8 and creatinine of 0.8. Glucose 303. Liver enzymes normal. Lipase 29. Labs: Laboratory Results - last 24 hr 08/28/23 16:45 WBC 8.4 RBC 4.91 Hgb 15.5 H Hct 43.4 MCV 88.4 MCH 31.6 MCHC 35.7 RDW Std Deviation 40.8 RDW Coeff of Manpreet 12.6 Plt Count 428 MPV 8.2 Immature Gran % (Auto) 0.600 Neut % (Auto) 72.6 H Lymph % (Auto) 20.8 [place] % (Auto) 5.1 Eos % (Auto) 0.4 Baso % (Auto) 0.5 Absolute Neuts (auto) 6.1 Absolute Lymphs (auto) 1.74 Nucleated RBC % 0 Sodium 133 L Potassium 3.5 Chloride 101 Carbon Dioxide 23.0 Anion Gap 9 BUN 8 Creatinine 0.80 Est GFR (MDRD) Af Amer 99 Est GFR (MDRD) Non-Af 82 BUN/Creatinine Ratio 10.0 Glucose 303 H Calcium 9.5 Total Bilirubin 0.80 AST 14 L ALT 23 Alkaline Phosphatase 117 Total Protein 7.9 Albumin 3.8 Globulin 4.1 Albumin/Globulin Ratio 0.9 Lipase 29 Discharge Plan Triage Chief Complaint: Abd Pain ED Provider: Zacarias Olguin Dx/Rx/DC Orders Clinical Impression: Anxiety, History of diabetes mellitus, Nausea & vomiting, Abdominal pain Instructions: Abdominal Pain, Anxiety Disorders Tx Prescriptions: No Action fluticasone propion-salmeterol [Advair Diskus] 250-50 mcg/dose blister with device 1 inh inhalation BID albuterol sulfate [ProAir HFA] 90 mcg/actuation HFA aerosol inhaler 2 inh inhalation Q4H PRN (Reason: shortness of breath or wheezing) lorazepam [Ativan] 0.5 mg tablet 0.5 mg PO Q8H PRN (Reason: anxiety) pioglitazone [Actos] 45 mg tablet 45 mg PO DAILY insulin aspart U-100 [Novolog FlexPen U-100 Insulin] 100 unit/mL (3 mL) insulin pen See Protocol subcut DAILY Protocol: 6. Sliding Scale Insulin Custom Condition: mg/dl range Dose/Route: Number of Units Protocol Text: Custom Sliding Scale Patient Comments: HAS PAPER AT HOME FOR SCALE trazodone 150 mg tablet 150 mg PO QHS hydrocodone-acetaminophen [hydrocodone-acetaminophen] 5-325 mg tablet 1 tab PO Q6H PRN PRN (Reason: Pain) 2 Days Qty: 6 0RF hydrocodone-acetaminophen [hydrocodone-acetaminophen] 5-325 mg tablet 1 tab PO Q6H PRN PRN (Reason: Pain) 5 Days Qty: 20 0RF ondansetron [ondansetron] 4 mg tablet,disintegrating 4 mg PO Q6H PRN PRN (Reason: Nausea) Qty: 10 0RF Primary Care Provider: Nakia Garcia Referrals: Nakia Garcia MD [Primary Care Provider] - As soon as possible Activity Restrictions/Additional Instructions: Plenty of fluids and rest. Zofran as needed for nausea. Follow-up with your primary care physician. Return if feeling worse. Disposition Disposition: Home, Self Care
[2023-08-28 16:56] LABS: Absolute Lymphocyte Count 1.74 X10^3/uL (0.83-4.51); Absolute Neutrophil Count 6.1 X10^3/uL (2.0-7.7); Basophil# 0.04 X10^3/uL; Basophil% 0.5 % (0-1); Eosinophil# 0.03 X10^3/uL; Eosinophils% 0.4 % (0-5); Hematocrit 43.4 % (37-47); Hemoglobin 15.5 g/dL (12.0-15.0); Lymphocyte # 1.74 X10^3/ul (0.83-4.51); Lymphocyte % 20.8 % (19-41); Mean Corp Hgb Conc 35.7 g/dL (32-36); Mean Corpuscular Hgb 31.6 pg (27.0-32.0); Mean Corpuscular Volume 88.4 fL (81-99); Mean Platelet Vol. 8.2 fl (6.2-12.0); Monocyte# 0.43 X10^3/uL; Monocyte% 5.1 % (0-10); NRBC Flagged by Analyzer 0 % (0-5); Neutrophil # 6.06 X10^3/uL (2.7-7.7); Neutrophil % 72.6 % (47-70); Platelet Count 428 K/mm3 (150-450); RBC Distribution Width CV 12.6 % (11.6-14.6); RBC Distribution Width SD 40.8 fl (35.1-43.9); Red Blood Count 4.91 M/mm3 (4.2-5.4); White Blood Count 8.4 K/mm3 (4.4-11.0)
[2023-08-28] MEDS: Ketorolac 15 MG/ML Vial IV (16:57)
[2023-08-28] MEDS: Ondansetron 4 MG/2 ML Vial IV (16:57)
[2023-08-28 17:13] LABS: ALB/GLOB Ratio 0.9 RATIO (0.9-2.4); AST(SGOT) 14 U/L (15-37); Alanine Aminotransfer ALT/SGPT 23 U/L (13-56); Albumin, Serum 3.8 g/dL (3.2-5.0); Alkaline Phosphatase 117 U/L (45-117); Anion Gap 9 (5-15); BUN 8 mg/dL (7-18); Calcium,Total 9.5 mg/dL (8.5-10.1); Chloride 101 mmol/L (98-107); EST Glomerular Filtration Rate 82 mL/min (>60); Est Glom Filt Rate - Afr Amer 99 mL/min (>60); Globulin 4.1 g/dL (2.2-4.2); Glucose 303 mg/dL (74-106); Lipase 29 U/L (13-75); Potassium 3.5 mmol/L (3.5-5.1); Protein, Total 7.9 g/dL (6.4-8.2); Sodium Level 133 mmol/L (136-145)
[2023-08-28] MEDS: LORazepam 1 MG Tablet PO (18:23)
== END 2023-08-28 18:26 | disposition home or self-care (01) ==
PROVIDERS: Emergency Provider Emergency Medicine; Visit Provider Emergency Medicine
DX: F41.9 Anxiety disorder, unspecified (principal); J44.9 Chronic obstructive pulmonary disease, unspecified; E11.9 Type 2 diabetes mellitus without complications; R10.13 Epigastric pain; R11.2 Nausea with vomiting, unspecified; F17.210 Nicotine dependence, cigarettes, uncomplicated
CPT/HCPCS: 80053; 83690; 85025; 96374; 96375; 99282; A4216; J2405

== ENCOUNTER 2024-03-11 11:40 | Emergency (ER) | payer MEDICAID, SELFPAY ==
[2024-03-11 11:41] VITALS: BP 154/106; PULSE 101; RESP 18; TEMP 36.6; O2SAT 95
--- NOTE | 2024-03-11 12:45 | CT_ITS ---
STUDY: CT ABDOMEN AND PELVIS WITHOUT CONTRAST REASON FOR EXAM: Female, 48 years old. Flank pain and nausea and vomiting. RADIATION DOSAGE (If Supplied By Facility): CTDIvol = ( 10.41 ) mGy, DLP = ( 538.29 ) mGycm TECHNIQUE: Transaxial images were obtained from the dome of the diaphragm to the symphysis pubis without oral contrast, and without intravenous contrast. Sagittal and coronal images were reconstructed. Individualized dose optimization techniques were used for this CT. COMPARISON: Comparison is made with prior study dated July 12, 2023. FINDINGS: The visualized lung bases are unremarkable. Minimal degree of pericardial thickening inferiorly. Normal liver. Normal gallbladder and extrahepatic biliary system. Normal spleen. Normal pancreas. Normal bilateral adrenal glands. There is a 2 mm nonobstructive calculus in the posterior lower pole calyx of the right kidney. Normal left kidney. There is a small hiatal hernia. Normal small intestine. Normal colon. The appendix is visualized and appears normal. There is scattered atherosclerotic calcification of the abdominal aorta, without a demonstrated aneurysm. Normal inferior vena cava. There is a small retroperitoneal lymphadenopathy with enlarged nodes no greater than 10mm in the short axis diameter. Normal urinary bladder. There is absence of the uterus consistent with a prior hysterectomy. Normal abdominal wall. There are mild degenerative changes of the visualized lumbar spine. CT/Abdomen/Pelvis without Cont IMPRESSION: Stable nonobstructive calculus in the lower pole calyx of the right kidney. Electronically Signed: Fran Aguilar MD at 13:33 EDT ,
--- NOTE | 2024-03-11 12:46 | EDS_ITS ---
HPI HPI - GI History of Present Illness Chief Complaint: Flank Pain Detail of Chief Complaint: Right flank pain started last night. Informant: patient Abdominal Pain/Flank Pain Onset: Today and Yesterday Context: Gradual Onset Timing: Continuous Location: Right Flank Current Severity: Moderate Maximum Severity: Moderate Worsened by: Nothing Relieved by: Nothing Nausea/Vomiting/Emesis GI Symptom: Positive for Nausea and Vomiting Onset: Today Severity: Mild Diarrhea/Melena/Hematochezia GI Symptom: Negative for Diarrhea, Melena or Hematochezia Associated Symptoms Associated Symptoms: Negative for Dysuria, Frequency, Hematuria or Urgency Narrative Narrative: 48-year-old female history of kidney stones and diabetes. Similar She had some mild right flank discomfort about 245 this morning she woke up with significant right flank pain. Associated nausea and vomiting. No fever. No dysuria hematuria. No fall or trauma to her back. Feels like one of her prior kidney stones. Prior similar symptoms: Yes Recent Illness/Hospitalization: No PFSH PFSH Medical History Kidney stones COPD (chronic obstructive pulmonary disease) Asthma Type 2 diabetes mellitus Hypothyroid HTN (hypertension) Anxiety Depression Idiopathic anaphylaxis Home Medications ?Medication ?Instructions ?Recorded ?Last Taken ?Type albuterol sulfate 90 mcg/actuation 2 inh inhalation Q4H PRN shortness 07/08/23 Unknown History aerosol inhaler (ProAir HFA) of breath or wheezing fluticasone 250 mcg-salmeterol 50 1 inh inhalation BID 07/08/23 Unknown History mcg/dose blistr powdr for inhalation (Advair Diskus) insulin aspart U-100 100 unit/mL See Protocol subcut DAILY 07/08/23 Unknown History (3 mL) subcutaneous pen (Novolog FlexPen U-100 Insulin aspart) lorazepam 0.5 mg tablet (Ativan) 0.5 mg PO Q8H PRN anxiety 07/08/23 Unknown History pioglitazone 45 mg tablet (Actos) 45 mg PO DAILY 07/08/23 Unknown History trazodone 150 mg tablet 150 mg PO QHS 07/08/23 Unknown History hydrocodone-acetaminophen 5-325mg 1 tab PO Q6H PRN PRN Pain 2 days 07/09/23 Unknown Rx 5mg-325mg #6 TABLETS hydrocodone-acetaminophen 5-325mg 1 tab PO Q6H PRN PRN Pain 5 days 07/12/23 Unknown Rx 5mg-325mg #20 TABLETS ondansetron 4 mg disintegrating 4 mg PO Q6H PRN PRN Nausea #10 tabs 07/12/23 Unknown Rx tablet Allergy/AdvReac Type Severity Reaction Status Date / Time aspirin Allergy Hives Verified 08/28/23 16:12 diphenhydramine (From Allergy Hives Verified 08/28/23 16:12 Benadryl) iodine Allergy Rash Verified 08/28/23 16:12 latex Allergy Hives Verified 08/28/23 16:12 Sulfa (Sulfonamide Allergy Hives Verified 08/28/23 16:12 Antibiotics) Surgical History History of urethral stent H/O lithotripsy H/O total hysterectomy Social History household members: spouse Smoking Status: Current every day smoker tobacco type: cigarettes substance use type: does not use ROS ROS ED ROS Narrative Right flank pain. Nausea and vomiting. Review of Systems ROS Unobtainable: Denies due to encephalopathy Constitutional Constitutional ED: Denies chills or fever(s) ENT ENT ED: Denies ear pain Cardiovascular Cardiovascular: Denies chest pain Respiratory/Chest Respiratory/Chest: Denies cough or dyspnea Gastrointestinal Gastrointestinal: Reports abdominal pain, nausea and vomiting; Denies constipation, diarrhea or melena Genitourinary Genitourinary ED: Denies dysuria or hematuria Musculoskeletal Musculoskeletal: Reports back pain; Denies arthralgias Integumentary Denies abscess or Abrasions Neurologic Neurologic: Denies headache(s) Psychiatric Psychiatric: Denies anxiety or depression Endocrine Endocrinology: Denies polydipsia or polyphagia Hematologic/Lymphatic Hematologic/Lymphatic: Denies easy bleeding or easy bruising Allergic/Immunologic Allergic/Immunologic ED: Denies mouth swelling or tongue swelling EXAM Physical Exam Narrative Exam Narrative: 40-year-old female vital signs stable afebrile. H EENT exam unremarkable. Neck nontender. Lungs clear. Heart regular rhythm rate about 100 no murmur. Abdomen soft, nontender, nondistended normal bowel sounds no peritoneal signs. Back nontender. Moving all 4 extremities. Awake and alert. Answering questions following commands. No focal motor deficits. Const Vital Signs: 03/11/24 11:41 03/11/24 13:41 Temperature 97.8 F Temperature Source Temporal Pulse Rate 101 H 88 Respiratory Rate 18 18 Blood Pressure 154/106 H 144/90 H Blood Pressure Mean 122 108 Pulse Ox 95 96 Oxygen Delivery Method Room Air Room Air Positive well nourished and well developed; Negative for cachectic, contractures or unkempt General Appearance ED: well developed and NAD; Negative for unkempt, cachectic, contractures or pallor Nutritional Appearance: Negative for cachectic HEENT Reports moist mucous membranes normocephalic and atraumatic; Negative for trauma or tenderness Eyes PERRL and EOMs intact bilaterally General Eye ED: Negative for pale conjunctiva or scleral icterus Neck no lymphadenopathy, supple and no JVD General: Negative for tenderness Lymph Lymphatic: Negative for other Resp normal respiratory effort and clear to auscultation bilaterally Effort and Inspection: Negative for respiratory distress or retractions Auscultation: Negative for rales, rhonchi or wheezes Cardio regular rate, regular rhythm, S1 normal heart sound, S2 normal heart sound and no murmurs Rate: Negative for bradycardia or tachycardic Rhythm: Negative for abnormal rhythm GI non-tender, non-distended and no masses Inspection: Negative for abdominal distention Auscultation: normoactive bowel sounds Palpation: soft; Negative for tender, guarding or rebound tenderness present Back/Spine no CVA tenderness General Back: Negative for CVA tenderness Cervical Spine: Negative for cervical spine tenderness Thoracic Spine / Upper Back: Negative for thoracic spinal tenderness Lumbar Spine / Lower Back: Negative for lumbar spinal tenderness Extremity full ROM General Extremety ED: Negative for tenderness Neuro CN's II-XII intact bilaterally and moves all extremities Sensorium / Orientation: alert, oriented to person, oriented to place and oriented to time; Negative for orientation impaired or confused Motor Exam: strength 5/5 throughout; Negative for general weakness or strength abnormal Psych mental status grossly normal and thought process normal Appearance: Negative for unkempt Attitude: No agitated Mood & Affect: Negative for depressed, anxious or tearful Skin no wounds General Skin Exam: Negative for jaundice or pallor Lesions: no lesions Rashes: no rashes Trauma: Negative for abrasion Nails: Negative for discolored MDM MDM MDM Narrative Medical decision making narrative: 48-year-old diabetic female right flank pain history of kidney stones. CAT scan labs pending. Toradol, morphine and Zofran for pain and nausea. Repeat exam patient doing well at 3:23 PM. I went over her test with her. No specific cause for her pain. There is no acute stone or UTI. Labs are unremarkable. She will be discharged home. History & Record Review Discussion w/independent historian: Patient Additional record(s) reviewed:: Prior inpatient record, Prior outpatient record, Prior ED visit and No prior records Lab Data Attestation: I reviewed the patient's lab results. Lab results narrative: CBC normal. White count 10. H&H 14 and 43. Platelets 437. Electrolytes sodium 134. Gap 9. Normal BUN and creatinine. Glucose 332. Pat ient is a known diabetic. UA shows no white or red cells. No bacteria nor nitrites. CAT scan shows no acute ureteral calculi. There is a stone in the kidney but none in the ureter. Labs: Laboratory Results - last 24 hr 03/11/24 03/11/24 11:45 13:03 WBC 10.1 RBC 5.21 Hgb 14.6 Hct 43.0 MCV 82.5 MCH 28.0 MCHC 34.0 RDW Std Deviation 38.5 RDW Coeff of Manpreet 12.9 Plt Count 437 MPV 9.2 Immature Gran % (Auto) 0.600 Neut % (Auto) 63.7 Lymph % (Auto) 27.1 [place] % (Auto) 5.6 Eos % (Auto) 2.2 Baso % (Auto) 0.8 Absolute Neuts (auto) 6.4 Absolute Lymphs (auto) 2.73 Nucleated RBC % 0 Sodium 134 L Potassium 3.8 Chloride 103 Carbon Dioxide 22.0 Anion Gap 9 BUN 12 Creatinine 0.69 Est GFR (MDRD) Af Amer 116 Est GFR (MDRD) Non-Af 96 BUN/Creatinine Ratio 17.4 Glucose 332 H Calcium 8.5 Urine Color Yellow Urine Clarity Clear Urine pH 5.0 Ur Specific [place] 1.015 Urine Protein Negative Urine Glucose (UA) 1000 H Urine Ketones 5 H Urine Occult Blood Negative Urine Nitrite Negative Urine Bilirubin Negative Urine Urobilinogen Normal Ur Leukocyte Esterase Negative Urine RBC 0 SEEN Urine WBC 0 SEEN Ur Squamous Epith Cells 0 SEEN Urine Bacteria 0 SEEN Urine Mucus 0 SEEN Radiography Diagnostic Testing: Clinical Impression(s) from Imaging Studies Abdomen/Pelvis CT 03/11/24 12:45 IMPRESSION: Stable nonobstructive calculus in the lower pole calyx of the right kidney. Electronically Signed: Fran Aguilar MD at 13:33 EDT , Discharge Plan Triage Chief Complaint: Flank Pain ED Provider: Zacarias Olguin Dx/Rx/DC Orders Clinical Impression: Acute flank pain, History of renal stone, Hyperglycemia due to diabetes mellitus Instructions: ED Diabetic Hyperglycemia, ED Flank Pain, Uncertain Cause Prescriptions: No Action fluticasone propion-salmeterol [Advair Diskus] 250-50 mcg/dose blister with device 1 inh inhalation BID albuterol sulfate [ProAir HFA] 90 mcg/actuation HFA aerosol inhaler 2 inh inhalation Q4H PRN (Reason: shortness of breath or wheezing) lorazepam [Ativan] 0.5 mg tablet 0.5 mg PO Q8H PRN (Reason: anxiety) pioglitazone [Actos] 45 mg tablet 45 mg PO DAILY insulin aspart U-100 [Novolog FlexPen U-100 Insulin] 100 unit/mL (3 mL) insulin pen See Protocol subcut DAILY Protocol: 6. Sliding Scale Insulin Custom Condition: mg/dl range Dose/Route: Number of Units Protocol Text: Custom Sliding Scale Patient Comments: HAS PAPER AT HOME FOR SCALE trazodone 150 mg tablet 150 mg PO QHS hydrocodone-acetaminophen [hydrocodone-acetaminophen] 5-325 mg tablet 1 tab PO Q6H PRN PRN (Reason: Pain) 2 Days Qty: 6 0RF hydrocodone-acetaminophen [hydrocodone-acetaminophen] 5-325 mg tablet 1 tab PO Q6H PRN PRN (Reason: Pain) 5 Days Qty: 20 0RF ondansetron [ondansetron] 4 mg tablet,disintegrating 4 mg PO Q6H PRN PRN (Reason: Nausea) Qty: 10 0RF Primary Care Provider: Nakia Garcia Referrals: Nakia Garcia MD [Primary Care Provider] - As Needed Activity Restrictions/Additional Instructions: Labs are unremarkable and her blood sugar is elevated at 332. Watch her blood sugars closely. No acute kidney stone. No urinary tract infection. Your labs and CAT scan otherwise are unremarkable. Follow-up with your doctor as needed. Tylenol and Motrin for pain. Print Language: Malagasy Disposition Disposition: Home, Self Care
[2024-03-11 12:56] LABS: Absolute Lymphocyte Count 2.73 X10^3/uL (0.83-4.51); Absolute Neutrophil Count 6.4 X10^3/uL (2.0-7.7); Basophil# 0.08 X10^3/uL; Basophil% 0.8 % (0-1); Eosinophil# 0.22 X10^3/uL; Eosinophils% 2.2 % (0-5); Hemoglobin 14.6 g/dL (12.0-15.0); Lymphocyte # 2.73 X10^3/ul (0.83-4.51); Lymphocyte % 27.1 % (19-41); Mean Corpuscular Volume 82.5 fL (81-99); Mean Platelet Vol. 9.2 fl (6.2-12.0); Monocyte# 0.56 X10^3/uL; Monocyte% 5.6 % (0-10); NRBC Flagged by Analyzer 0 % (0-5); Neutrophil # 6.44 X10^3/uL (2.7-7.7); Neutrophil % 63.7 % (47-70); Platelet Count 437 K/mm3 (150-450); RBC Distribution Width CV 12.9 % (11.6-14.6); RBC Distribution Width SD 38.5 fl (35.1-43.9); Red Blood Count 5.21 M/mm3 (4.2-5.4); White Blood Count 10.1 K/mm3 (4.4-11.0)
[2024-03-11] MEDS: Ondansetron 4 MG/2 ML Vial IV (13:00)
[2024-03-11] MEDS: 0.9% Normal Saline (1000mL) 1,000 ML 999 ML IV (13:00)
[2024-03-11] MEDS: morphine 8 MG/ML Syringe IV (13:00)
[2024-03-11] MEDS: Ketorolac 30 MG/ML Syringe IV (13:00)
[2024-03-11 13:08] LABS: Bacteria 0 SEEN /hpf (None Seen); Mucous, Urine 0 SEEN /hpf (<or=2+); Red Blood Cells-Urine 0 SEEN /hpf (0-5); Squamous Epithelial Cells - UA 0 SEEN /hpf (5-10); White Blood Cells 0 SEEN /hpf (0-5)
[2024-03-11 13:17] LABS: Anion Gap 9 (5-15); BUN 12 mg/dL (7-18); BUN/Creat Ratio 17.4 RATIO (10-20); Calcium,Total 8.5 mg/dL (8.5-10.1); Chloride 103 mmol/L (98-107); Creatinine, Serum 0.69 mg/dL (0.55-1.02); EST Glomerular Filtration Rate 96 mL/min (>60); Est Glom Filt Rate - Afr Amer 116 mL/min (>60); Glucose 332 mg/dL (74-106); Potassium 3.8 mmol/L (3.5-5.1); Sodium Level 134 mmol/L (136-145)
[2024-03-11 13:18] LABS: Color, Urine Yellow (Yellow); Glucose, Dipstick 1000 mg/dl (Normal); Ketone-Dipstick 5 mg/dl (Negative); Leukocyte Esterase-Dipstick Negative /ul (Negative); Nitrite-Dipstick Negative (Negative); Occult Blood-Urine Negative /ul (Negative); Protein-Dipstick Negative (Negative); Specific Gravity, Urine 1.015 (1.002-1.030); Urine Bilirubin Dipstick Negative (Negative); Urine Clarity Clear (Clear); Urine Urobilinogen Normal (Normal)
[2024-03-11 13:41] VITALS: BP 144/90; PULSE 88; RESP 18; O2SAT 96
[2024-03-11 15:00] VITALS: BP 140/88; PULSE 87; RESP 18; O2SAT 99
[2024-03-11 15:38] VITALS: BP 144/89; PULSE 89; RESP 18; TEMP 36.6; O2SAT 100
== END 2024-03-11 15:38 | disposition home or self-care (01) ==
PROVIDERS: Emergency Provider Emergency Medicine; Visit Provider Emergency Medicine
DX: R10.9 Unspecified abdominal pain (principal); J44.9 Chronic obstructive pulmonary disease, unspecified; Z79.4 Long term (current) use of insulin; E11.65 Type 2 diabetes mellitus with hyperglycemia; R11.2 Nausea with vomiting, unspecified; I10 Essential (primary) hypertension; F17.210 Nicotine dependence, cigarettes, uncomplicated; Z79.51 Long term (current) use of inhaled steroids; F41.9 Anxiety disorder, unspecified; Z79.899 Other long term (current) drug therapy; Z90.710 Acquired absence of both cervix and uterus; Z87.442 Personal history of urinary calculi
CPT/HCPCS: 74176; 80048; 81001; 85025; 96361; 96374; 96375; 99283; A4216; J2405

== ENCOUNTER 2024-04-11 14:52 | Emergency (ER) | payer MEDICAID, SELFPAY ==
[2024-04-11 14:52] VITALS: BP 137/81; PULSE 101; RESP 20; TEMP 36; O2SAT 97
[2024-04-11 14:54] VITALS: BMI 27.5
[2024-04-11 15:57] VITALS: BP 124/81; PULSE 82; RESP 18; O2SAT 98
[2024-04-11 16:00] VITALS: BP 124/81; PULSE 82; RESP 18; O2SAT 98
--- NOTE | 2024-04-11 16:15 | CT_ITS ---
INDICATION: left eye vision change, headache EXAMINATION: CT BRAIN - CT Head or Brain W/O Contrast Injection TECHNIQUE: Multiple axial images were obtained of the head without intravenous contrast. A radiation dose optimization technique was used for this scan. IV Contrast dosage and agent: None. COMPARISON: None. FINDINGS: BRAIN PARENCHYMA: No intra- or extra-axial hemorrhage. No evidence of acute infarct. No intracranial mass or mass effect. There is preservation of the ramos/white matter interface. Posterior fossa structures are unremarkable. CSF SPACES: Appropriate for age. No hydrocephalus. Basal cisterns are patent. CALVARIUM, SKULL BASE, PARANASAL SINUSES AND MASTOID AIR CELLS: Clear. No discrete lytic or blastic abnormalities. ORBITS: Both globes, extraocular muscles, optic nerves and retrobulbar fat appear unremarkable. CT/Brain/Head without Contrast IMPRESSION: No acute intracranial findings. Electronically Signed: Napoleon Russo MD at 17:12 EDT ,
--- NOTE | 2024-04-11 16:39 | EDS_ITS ---
HPI History of Present Illness Chief Complaint: Neuro S/Sx Informant: patient Narrative Narrative: Patient is a 48-year-old female with history of COPD, anxiety, hypothyroid and diabetes mellitus presenting with headache and blurry vision in her left eye. Patient states when she woke up associated mild headache. She noticed her left eye she was seeing halos of lights and everything else seemed blurred. She states she had double or triple vision in her left eye. She thought initially she was just tired however as the day progressed her headache worsened and she is continued to have the blurry vision. Today her headache continued to worsen and she still had worsening nausea. Denies any vomiting. She has been feeling dizzy. She has her body just feels heavy. Does have some associated photophobia. She has a headache is mostly in the front of her head as well as the back of her head. Does not report sudden onset of her headache. Denies any associated numbness or tingling. States she has been having tingling of her fingers and toes but this has been ongoing and not acute. Denies any sick contacts, abdominal pain, chest pain, shortness of breath, urinary symptoms or fever. Did recently restart antidepressant medicine 9 days ago denies any medication changes. Does like taking Tylenol with no relief of her symptoms. Reports history of hives and throat swelling with NSAIDs. Does not wear any corrective lenses [facility] Medical History Kidney stones COPD (chronic obstructive pulmonary disease) Asthma Type 2 diabetes mellitus Hypothyroid HTN (hypertension) Anxiety Depression Idiopathic anaphylaxis Home Medications ?Medication ?Instructions ?Recorded ?Last Taken ?Type albuterol sulfate 90 mcg/actuation 2 inh inhalation Q4H PRN shortness 07/08/23 Unknown History aerosol inhaler (ProAir HFA) of breath or wheezing fluticasone 250 mcg-salmeterol 50 1 inh inhalation BID 07/08/23 Unknown History mcg/dose blistr powdr for inhalation (Advair Diskus) insulin aspart U-100 100 unit/mL See Protocol subcut DAILY 07/08/23 Unknown Hi story (3 mL) subcutaneous pen (Novolog FlexPen U-100 Insulin aspart) lorazepam 0.5 mg tablet (Ativan) 0.5 mg PO Q8H PRN anxiety 07/08/23 Unknown History pioglitazone 45 mg tablet (Actos) 45 mg PO DAILY 07/08/23 Unknown History trazodone 150 mg tablet 150 mg PO QHS 07/08/23 Unknown History hydrocodone-acetaminophen 5-325mg 1 tab PO Q6H PRN PRN Pain 2 days 07/09/23 Unknown Rx 5mg-325mg #6 TABLETS hydrocodone-acetaminophen 5-325mg 1 tab PO Q6H PRN PRN Pain 5 days 07/12/23 Unknown Rx 5mg-325mg #20 TABLETS ondansetron 4 mg disintegrating 4 mg PO Q6H PRN PRN Nausea #10 tabs 07/12/23 Unknown Rx tablet Allergy/AdvReac Type Severity Reaction Status Date / Time aspirin Allergy Hives Verified 04/11/24 14:52 diphenhydramine (From Allergy Hives Verified 04/11/24 14:52 Benadryl) iodine Allergy Rash Verified 04/11/24 14:52 latex Allergy Hives Verified 04/11/24 14:52 Sulfa (Sulfonamide Allergy Hives Verified 04/11/24 14:52 Antibiotics) Surgical History History of urethral stent H/O lithotripsy H/O total hysterectomy Social History household members: spouse Smoking Status: Current every day smoker tobacco type: cigarettes substance use type: does not use ROS ROS ED Constitutional Constitutional ED: Denies chills or fever(s) Eyes Eyes: Reports blurry vision left and change in vision left ENT ENT ED: Denies rhinorrhea or sore throat Cardiovascular Cardiovascular: Denies chest pain Respiratory/Chest Respiratory/Chest: Denies cough or dyspnea Gastrointestinal Gastrointestinal: Reports nausea; Denies abdominal pain, diarrhea or vomiting Musculoskeletal Musculoskeletal: Denies arthralgias or myalgias Integumentary Denies rash Neurologic Neurologic: Reports headache(s); Denies paresthesias or weakness Psychiatric Psychiatric: Reports anxiety Hematologic/Lymphatic Hematologic/Lymphatic: Denies easy bleeding EXAM Physical Exam Const Vital Signs: 04/11/24 14:52 04/11/24 15:57 04/11/24 16:00 Temperature 96.8 F L Temperature Source Temporal Pulse Rate 101 H 82 82 Respiratory Rate 20 H 18 18 Blood Pressure 137/81 H 124/81 H 124/81 H Blood Pressure Mean 99 95 95 Pulse Ox 97 98 98 Oxygen Delivery Method Room Air Room Air Room Air 04/11/24 17:00 04/11/24 18:00 Temperature Temperature Source Pulse Rate 94 90 Respiratory Rate 16 15 Blood Pressure 123/100 H 145/96 H Blood Pressure Mean 107 112 Pulse Ox 99 Oxygen Delivery Method Room Air Positive well nourished and well developed General Appearance ED: well developed and NAD HEENT Reports TM's clear and moist mucous membranes HEENT Narrative: Normal naris. Normal oropharynx. Uvula is midline. Enlarged submandibular glands bilaterally that are nontender Tympanic Membrane ED: Yes TM's clear Eyes PERRL and EOMs intact bilaterally Eyes Narrative: No nystagmus appreciated. No visual field cut appreciated. No conjunctival injection. Left eye pressure 27 mmHg Neck no lymphadenopathy, supple and no JVD Neck Narrative: Normal range of motion, no nuchal rigidity Resp normal respiratory effort and clear to auscultation bilaterally Cardio regular rate and regular rhythm GI normal to inspection, nondistended, normoactive bowel sounds and non-tender Extremity normal to inspection General Extremety ED: Negative for edema General Extremity: Negative for edema Neuro oriented x3, CN's II-XII intact bilaterally and no sensory deficits noted Neuro Narrative: No truncal ataxia, normal coordination Sensorium / Orientation: alert Motor Exam: strength 5/5 throughout; Negative for general weakness Psych mental status grossly normal Skin no rashes or lesions noted and no wounds MDM MDM MDM Narrative Medical decision making narrative: Patient is evaluated for worsening headache as well as vision changes in her left eye. Does have a history of diabetes mellitus. On exam patient is mildly uncomfortable appearing but no acute distress. Has no conjunctival injection, focal neurologic symptoms or infectious symptoms such as fever. Has not have any nuchal rigidity. Suspicion for meningitis. Given the vision changes and her headache is CT of the brain is obtained which does not show any acute process. Lab work obtained and is largely negative including a CBC, CMP and urinalysis. There are no significant [place] abnormalities however she is hyperglycemic with a glucose of 320 however she does have a history of diabetes. She has a normal anion gap and I do not think she is in DKA or HHNK. Patient is treated with IV fluids and Reglan for her headache. After CT she becomes quite anxious and is requesting something for this. She is given 1 mg of IV Ativan (looks like she has had oral Ativan prescribed at home in the past). Pressure in her left eye is 27 mmHg and I do not suspect an acute angle glaucoma. Physical exam was not really consistent with an iritis. Do wonder if this could be some type of complex migraine. On repeat evaluation patient has improvement of her symptoms and states she feels much better. She would like to be discharged home. I did offer to call environmental services associate ophthalmology for further recommendations and to arrange close follow-up but she states she will call the office in the morning. She is given information for ophthalmology on-call with Dr. Whittington. As patient has a normal neurologic exam with no visual field could have a lower suspicion for central process/stroke I do not think she requires admission for MRI. Patient is encouraged to return to emergency room should she have a progression worsen her symptoms or further concerns. Lab Data Attestation: I reviewed the patient's lab results. Labs: Laboratory Results - last 24 hr 04/11/24 04/11/24 15:43 17:17 WBC 9.6 RBC 5.09 Hgb 14.7 Hct 42.4 MCV 83.3 MCH 28.9 MCHC 34.7 RDW Std Deviation 38.3 RDW Coeff of Manpreet 12.6 Plt Count 423 MPV 9.3 Immature Gran % (Auto) 0.500 Neut % (Auto) 66.0 Lymph % (Auto) 24.9 Stone % (Auto) 5.8 Eos % (Auto) 2.0 Baso % (Auto) 0.8 Absolute Neuts (auto) 6.4 Absolute Lymphs (auto) 2.40 Nucleated RBC % 0 Sodium 134 L Potassium 3.6 Chloride 104 Carbon Dioxide 22.0 Anion Gap 8 BUN 12 Creatinine 0.77 Est GFR (MDRD) Af Amer 103 Est GFR (MDRD) Non-Af 85 BUN/Creatinine Ratio 15.6 Glucose 320 H Calcium 8.6 Total Bilirubin 0.30 AST 14 L ALT 21 Alkaline Phosphatase 118 H Troponin I High Sens 3 Total Protein 6.5 Albumin 3.0 L Globulin 3.5 Albumin/Globulin Ratio 0.9 Urine Color Yellow Urine Clarity Clear Urine pH 6.0 Ur Specific [place] 1.025 Urine Protein Negative Urine Glucose (UA) 1000 H Urine Ketones 5 H Urine Occult Blood Negative Urine Nitrite Negative Urine Bilirubin Negative Urine Urobilinogen Normal Ur Leukocyte Esterase Negative Urine RBC 0 SEEN Urine WBC 0 SEEN Ur Squamous Epith Cells 0 SEEN Urine Bacteria 0 SEEN Urine Mucus 0 SEEN Radiography Diagnostic Testing: Clinical Impression(s) from Imaging Studies Brain CT 04/11/24 16:15 IMPRESSION: No acute intracranial findings. Electronically Signed: Napoleon Russo MD at 17:12 EDT , Discharge Plan Triage Chief Complaint: Neuro S/Sx ED Provider: Ileana Robles Dx/Rx/DC Orders Clinical Impression: Headache, Blurred vision, left eye Instructions: ED Blurred Vision, ED Headache Unspecified Prescriptions: No Action fluticasone propion-salmeterol [Advair Diskus] 250-50 mcg/dose blister with device 1 inh inhalation BID albuterol sulfate [ProAir HFA] 90 mcg/actuation HFA aerosol inhaler 2 inh inhalation Q4H PRN (Reason: shortness of breath or wheezing) lorazepam [Ativan] 0.5 mg tablet 0.5 mg PO Q8H PRN (Reason: anxiety) pioglitazone [Actos] 45 mg tablet 45 mg PO DAILY insulin aspart U-100 [Novolog FlexPen U-100 Insulin] 100 unit/mL (3 mL) insulin pen See Protocol subcut DAILY Protocol: 6. Sliding Scale Insulin Custom Condition: mg/dl range Dose/Route: Number of Units Protocol Text: Custom Sliding Scale Patient Comments: HAS PAPER AT HOME FOR SCALE trazodone 150 mg tablet 150 mg PO QHS hydrocodone-acetaminophen [hydrocodone-acetaminophen] 5-325 mg tablet 1 tab PO Q6H PRN PRN (Reason: Pain) 2 Days Qty: 6 0RF hydrocodone-acetaminophen [hydrocodone-acetaminophen] 5-325 mg tablet 1 tab PO Q6H PRN PRN (Reason: Pain) 5 Days Qty: 20 0RF ondansetron [ondansetron] 4 mg tablet,disintegrating 4 mg PO Q6H PRN PRN (Reason: Nausea) Qty: 10 0RF Primary Care Provider: Nakia Garcia Referrals: Nakia Garcia MD [Primary Care Provider] - Wang Whittington MD [Med Staff - Active Staff] - 1-2 Days if not improving Print Language: Azeri Disposition Disposition: Home, Self Care Discharge Date/Time: 04/11/24 19:28
[2024-04-11 16:44] LABS: Absolute Neutrophil Count 6.4 X10^3/uL (2.0-7.7); Basophil# 0.08 X10^3/uL; Basophil% 0.8 % (0-1); Eosinophil# 0.19 X10^3/uL; Hematocrit 42.4 % (37-47); Hemoglobin 14.7 g/dL (12.0-15.0); Lymphocyte % 24.9 % (19-41); Mean Corp Hgb Conc 34.7 g/dL (32-36); Mean Corpuscular Hgb 28.9 pg (27.0-32.0); Mean Corpuscular Volume 83.3 fL (81-99); Mean Platelet Vol. 9.3 fl (6.2-12.0); Monocyte# 0.56 X10^3/uL; Monocyte% 5.8 % (0-10); NRBC Flagged by Analyzer 0 % (0-5); Neutrophil # 6.35 X10^3/uL (2.7-7.7); Platelet Count 423 K/mm3 (150-450); RBC Distribution Width CV 12.6 % (11.6-14.6); RBC Distribution Width SD 38.3 fl (35.1-43.9); Red Blood Count 5.09 M/mm3 (4.2-5.4); White Blood Count 9.6 K/mm3 (4.4-11.0)
[2024-04-11 16:47] LABS: ALB/GLOB Ratio 0.9 RATIO (0.9-2.4); AST(SGOT) 14 U/L (15-37); Alanine Aminotransfer ALT/SGPT 21 U/L (13-56); Alkaline Phosphatase 118 U/L (45-117); Anion Gap 8 (5-15); BUN 12 mg/dL (7-18); BUN/Creat Ratio 15.6 RATIO (10-20); Calcium,Total 8.6 mg/dL (8.5-10.1); Chloride 104 mmol/L (98-107); Creatinine, Serum 0.77 mg/dL (0.55-1.02); EST Glomerular Filtration Rate 85 mL/min (>60); Est Glom Filt Rate - Afr Amer 103 mL/min (>60); Globulin 3.5 g/dL (2.2-4.2); Glucose 320 mg/dL (74-106); Potassium 3.6 mmol/L (3.5-5.1); Protein, Total 6.5 g/dL (6.4-8.2); Sodium Level 134 mmol/L (136-145); Troponin-I HS 3 pg/mL (3.0-54.0)
[2024-04-11] MEDS: 0.9% Normal Saline (1000mL) 1,000 ML 1000 ML IV (16:56)
[2024-04-11] MEDS: Metoclopramide 10 MG/2 ML Vial IV (16:56)
[2024-04-11] MEDS: Tetracaine 0.5% Ophthalmic Bottle 1 DRP OPHTHALMIC (16:56)
[2024-04-11 17:00] VITALS: BP 123/100; PULSE 94; RESP 16
[2024-04-11] MEDS: LORazepam 2 MG/ML Syringe 1 MG IV (17:21)
[2024-04-11 17:22] LABS: Bacteria 0 SEEN /hpf (None Seen); Mucous, Urine 0 SEEN /hpf (<or=2+); Red Blood Cells-Urine 0 SEEN /hpf (0-5); Squamous Epithelial Cells - UA 0 SEEN /hpf (5-10); White Blood Cells 0 SEEN /hpf (0-5)
[2024-04-11 17:32] LABS: Color, Urine Yellow (Yellow); Glucose, Dipstick 1000 mg/dl (Normal); Ketone-Dipstick 5 mg/dl (Negative); Leukocyte Esterase-Dipstick Negative /ul (Negative); Nitrite-Dipstick Negative (Negative); Occult Blood-Urine Negative /ul (Negative); Protein-Dipstick Negative (Negative); Specific Gravity, Urine 1.025 (1.002-1.030); Urine Bilirubin Dipstick Negative (Negative); Urine Clarity Clear (Clear); Urine Urobilinogen Normal (Normal)
[2024-04-11 18:00] VITALS: BP 145/96; PULSE 90; RESP 15; O2SAT 99
[2024-04-11 18:48] VITALS: BMI 27.4
== END 2024-04-11 19:28 | disposition home or self-care (01) ==
PROVIDERS: Emergency Provider Emergency Medicine; Visit Provider Emergency Medicine
DX: R51.9 Headache, unspecified (principal); J44.9 Chronic obstructive pulmonary disease, unspecified; E11.65 Type 2 diabetes mellitus with hyperglycemia; Z79.4 Long term (current) use of insulin; H53.8 Other visual disturbances; I10 Essential (primary) hypertension; F41.9 Anxiety disorder, unspecified; F17.210 Nicotine dependence, cigarettes, uncomplicated; Z79.51 Long term (current) use of inhaled steroids; Z79.899 Other long term (current) drug therapy
CPT/HCPCS: 70450; 80053; 81001; 84484; 85025; 96361; 96374; 96375; 99284; J7030; A4216